=== PATIENT | female | born 1990 ===

== ENCOUNTER 2018-11-16 16:51 | Emergency (ER) | payer BC, OTHER ==
[2018-11-16] MEDS ORDERED: D50W 25 GM/50 ML SYRINGE IV ONE (17:38)
[2018-11-16 17:42] LABS: Absolute Lymphocytes (CBC) 3.5 K/uL (0.7-4.9); Absolute Monocytes 0.6 K/uL (0.1-1.3); Absolute Neutrophil 5.3 K/uL (1.8-8.0); Basophils % 0.5 % (0-1.3); Eosinophils % 1.3 % (0-4.4); Hematocrit 39.7 % (36.0-45.0); Lymphocytes % 36.6 % (15.3-44.8); MPV 8.5 fL (7.6-11.3); Monocytes % 6.5 % (3.3-12.3)
[2018-11-16 17:46] LABS: Protime INR 1.11
--- NOTE | 2018-11-16 17:55 | RAD REPORT ---
EXAM DESCRIPTION: Feliciano Single View11/16/2018 5:48 pm CLINICAL HISTORY: Chest pain COMPARISON: none FINDINGS: The lungs appear clear of acute infiltrate. The heart is normal size IMPRESSION: No acute abnormalities displayed
[2018-11-16 18:08] LABS: ALT/SGPT 16 U/L (12-78); AST/SGOT 7 U/L (15-37); Albumin 3.8 g/dL (3.4-5.0); Alkaline Phosphatase 70 U/L (45-117); BUN Blood Urea Nitrogen 13 mg/dL (7-18); Bicarbonate 23 mmol/L (21-32); Bilirubin Direct 0.1 mg/dL (0-0.2); Bilirubin Total 0.3 mg/dL (0.2-1.0); Glucose Level 69 mg/dL (74-106); Magnesium 2.2 mg/dL (1.8-2.4); NT PRO-BNP 38 pg/mL (<125); Potassium 3.5 mmol/L (3.5-5.1); Protein, Total 7.3 g/dL (6.4-8.2); Sodium Level 141 mmol/L (136-145); Troponin (Emerg Dept Use Only) < 0.02 ng/mL (0.0-0.045)
[2018-11-16] MEDS ORDERED: NA CHLORIDE 0.9% 1,000 ML ONE (18:12)
[2018-11-16] MEDS ORDERED: KETOROLAC 30 MG/ML INJ ONE (18:32)
[2018-11-16 19:53] LABS: Urine Bacteria 20-50 /HPF (<20); Urine Culture Reflex Order NOT NEEDED; Urine RBC <5 /HPF (NONE SEEN)
[2018-11-16 19:56] LABS: Urine Blood NEGATIVE (NEG); Urine Glucose 2+ (NEG); Urine Protein 1+ (NEG); Urine pH 6.5 (5.0-7.0)
--- NOTE | 2018-11-16 20:00 | RAD REPORT ---
EXAM DESCRIPTION: RAD - Lumbar Spine 3 Views - 11/16/2018 7:28 pm CLINICAL HISTORY: Pain, syncope COMPARISON: None. FINDINGS: A three-view lumbar spine examination was performed. Lumbar bodies are normal in height an d normal in AP alignment. There is a minimal left convex curvature. No fracture or acute bony process seen. No disc space narrowing. No pars defects identified. IMPRESSION: Minimal left convex curvature that is potentially positional or from muscle spasm. No fracture seen. No acute bone or disc finding.
--- NOTE | 2018-11-16 20:00 | RAD REPORT ---
EXAM DESCRIPTION: CT - Head Brain Wo Cont - 11/16/2018 7:36 pm CLINICAL HISTORY: Syncope COMPARISON: None. TECHNIQUE: Axial 5 mm thick images of the head were obtained without IV contrast. All CT scans are performed using dose optimization technique as appropriate and may include automated exposure control or mA/KV adjustment according to patient size. FINDINGS: No intracranial hemorrhage, mass, edema or shift of mid-line structures. No acute infarcti on changes seen. No abnormal extra-axial fluid collections. Ventricles are normal. Mastoid air cells and visualized portions of the paranasal sinuses are clear. No acute bony findings. IMPRESSION: Negative non-contrast CT head examination.
[2018-11-16] MEDS ORDERED: FENTANYL CITR 100 MCG/2 ML ONE (20:43)
--- NOTE | 2018-11-16 20:45 | EDPHYS ---
Physician Documentation [facility] Department Name: Bel Gould Age: 28 yrs Sex: Female : 1990 Arrival Date: 11/16/2018 Time: 16:57 Bed 18 Private MD: ED Physician Kavin Roberts HPI: 11/16 17:36 This 28 yrs old Unknown Female presents to ER via EMS with complaints of Syncope. jr8 17:36 The patient has experienced syncope, became unresponsive, lost consciousness. Onset: jr8 The symptoms/episode began/occurred acutely, today. Duration: This was a single episode, that lasted 1 minute(s). Context: the episode(s) was witnessed, by family, occurred at home, occurred while the patient was sitting, Just prior to the episode the patient experienced no apparent symptoms. Associated injury: The patient did not suffer any apparent associated injury. Associated signs and symptoms: The patient has no apparent associated signs or symptoms. Current symptoms: Currently, the patient is not experiencing any symptoms, the patient feels back to baseline, no decreased level of consciousness, no confusion, no dysphasia, no headache, no paralysis, no visual changes. The patient has not experienced similar symptoms in the past. The patient has not recently seen a physician. Stated that they were getting ready for a [employer] party. Mother had found daughter sitting in chair leaning sideways drooling and shaking. 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 - Social history:: Smoking status: unknown. - Ebola Screening: : Patient negative for fever greater than or equal to 101.5 degrees Fahrenheit, and additional compatible Ebola Virus Disease symptoms Patient denies exposure to infectious person Patient denies travel to an Ebola-affected area in the 21 days before illness onset No symptoms or risks identified at this time. ROS: 17:36 Eyes: Negative for injury, pain, redness, and discharge, ENT: Negative for injury, jr8 pain, and discharge, Neck: Negative for injury, pain, and swelling, Cardiovascular: Negative for chest pain, palpitations, and edema, Respiratory: Negative for shortness of breath, cough, wheezing, and pleuritic chest pain, Abdomen/GI: Negative for abdominal pain, nausea, vomiting, diarrhea, and constipation, Back: Negative for injury and pain, MS/Extremity: Negative for injury and deformity, Skin: Negative for injury, rash, and discoloration. 17:36 Neuro: Positive for loss of consciousness, syncope. Exam: 17:36 Eyes: Pupils equal round and reactive to light, extra-ocular motions intact. Lids and jr8 lashes normal. Conjunctiva and sclera are non-icteric and not injected. Cornea within normal limits. Periorbital areas with no swelling, redness, or edema. ENT: Nares patent. No nasal discharge, no septal abnormalities noted. Tympanic membranes are normal and external auditory canals are clear. Oropharynx with no redness, swelling, or masses, exudates, or evidence of obstruction, uvula midline. Mucous membranes moist. Neck: Trachea midline, no thyromegaly or masses palpated, and no cervical lymphadenopathy. Supple, full range of motion without nuchal rigidity, or vertebral point tenderness. No Meningismus. Cardiovascular: Regular rate and rhythm with a normal S1 and S2. No gallops, murmurs, or rubs. Normal PMI, no JVD. No pulse deficits. Respiratory: Lungs have equal breath sounds bilaterally, clear to auscultation and percussion. No rales, rhonchi or wheezes noted. No increased work of breathing, no retractions or nasal flaring. Abdomen/GI: Soft, non-tender, with normal bowel sounds. No distension or tympany. No guarding or rebound. No evidence of tenderness throughout. Back: No spinal tenderness. No costovertebral tenderness. Full range of motion. Skin: Warm, dry with normal turgor. Normal color with no rashes, no lesions, and no evidence of cellulitis. MS/ Extremity: Pulses equal, no cyanosis. Neurovascular intact. Full, normal range of motion. Neuro: Awake and alert, GCS 15, oriented to person, place, time, and situation. Cranial nerves II-XII grossly intact. Motor strength 5/5 in all extremities. Sensory grossly intact. Cerebellar exam normal. Normal gait. Vital Signs: 17:13 Weight 58.97 kg; bp 17:46 BP 108 / 75; Pulse 81; Resp 20; Temp 98.4; Pulse Ox 99% on R/A; aj 17:50 BP 106 / 73 Supine; Pulse 76; Resp 17; Pulse Ox 99% on R/A; aj1 17:52 BP 103 / 72 Sitting; Pulse 88; aj1 17:56 BP 86 / 63 Standing; Pulse 107; aj1 18:15 BP 98 / 75; Pulse 76; Resp 16; Pulse Ox 97% on R/A; aj1 19:10 BP 105 / 83; Pulse 70; Resp 16; Temp 98.2; Pulse Ox 99% ; Pain 6/10; rr5 20:25 BP 108 / 78 Supine; Pulse 77; Resp 17; Pulse Ox 98% ; rr5 20:27 BP 109 / 83 Sitting; Pulse 81; Resp 16; Pulse Ox 100% ; rr5 20:28 BP 115 / 80 Standing; Pulse 74; Resp 17; Pulse Ox 99% ; rr5 21:00 BP 116 / 76; Pulse 70; Resp 17; Pulse Ox 99% ; rr5 MDM: 17:07 Patient medically screened. [facility] 20:42 Data reviewed: vital signs, nurses notes, lab test result(s), EKG, radiologic studies, [facility] CT scan, plain films. Data interpreted: Pulse oximetry: on room air is 99 %. Interpretation: normal. Counseling: I had a detailed discussion with the patient and/or guardian regarding: the historical points, exam findings, and any diagnostic results supporting the discharge/admit diagnosis, lab results, radiology results, the need for outpatient follow up, a family practitioner, to return to the emergency department if symptoms worsen or persist or if there are any questions or concerns that arise at home. Response to treatment: the patient's symptoms have markedly improved after treatment, patient is well hydrated. ED course: Patient had been dieting. Had told her that glucose was low and was orthostatic positive. All other images and labs normal. What happened today was more then likely secondary to dieting. Will need to increase food intake and fluids for next few days. Needs to f/u after holidays. If it happens again needs to come back for further evaluation. Patient good with this and will f/u. No longer orthostatic. . 11/16 17:03 Order name: Urine Culture snw 11/16 17:03 Order name: Urine Microscopic Only; Complete Time: 19:55 snw 11/16 17:27 Order name: Basic Metabolic Panel; Complete Time: 18:11 [facility] 11/16 17:27 Order name: CBC with Diff; Complete Time: 17:49 [facility] 11/16 17:27 Order name: LFT's; Complete Time: 18:11 [facility] 11/16 17:27 Order name: Magnesium; Complete Time: 18:11 [facility] 11/16 17:27 Order name: NT PRO-BNP; Complete Time: 18:11 [facility] 11/16 17:27 Order name: PT-INR; Complete Time: 17:49 [facility] 11/16 17:27 Order name: Troponin (emerg Dept Use Only); Complete Time: 18:11 [facility] 11/16 17:27 Order name: XRAY Chest (1 view); Complete Time: 18:01 [facility] 11/16 19:36 Order name: Urine Dipstick--Ancillary (enter results) 11/16 19:36 Order name: Urine --Ancillary (enter results) eb 11/16 19:37 Order name: Urine Dipstick-Ancillary; Complete Time: 19:58 EDMS 11/16 19:37 Order name: Urine --Ancillary; Complete Time: 19:58 EDMS 11/16 17:03 Order name: Urine Test (obtain specimen); Complete Time: 20:06 snw 11/16 17:03 Order name: Urine Dipstick-Ancillary (obtain specimen); Complete Time: 20:06 snw 11/16 17:03 Order name: EKG; Complete Time: 17:03 snw 11/16 17:03 Order name: EKG - Nurse/Tech; Complete Time: 17:45 snw 11/16 17:03 Order name: Orthostatics; Complete Time: 18:10 snw 11/16 17:27 Order name: Cardiac monitoring; Complete Time: 17:37 [facility] 11/16 17:27 Order name: IV Saline Lock; Complete Time: 17:44 [facility] 11/16 17:27 Order name: Labs collected and sent; Complete Time: 17:44 [facility] 11/16 17:27 Order name: CT Head Brain wo Cont; Complete Time: 20:04 [facility] 11/16 18:55 Order name: XRAY Lumbar Spine (3 Views); Complete Time: 20:04 [facility] 12/22 17:27 Order name: O2 Per Protocol; Complete Time: 17:45 jr8 11/16 17:27 Order name: O2 Sat Monitoring; Complete Time: 17:45 8 11/16 17:27 Order name: Orthostatics; Complete Time: 18:10 jr8 Administered Medications: 17:35 Drug: D50W 25 ml Route: IVP; Site: right antecubital; aj 21:32 Follow up: Response: No adverse reaction rr5 18:09 Drug: NS 0.9% 1000 ml Route: IV; Rate: 1000 ml; Site: right forearm; aj1 19:20 Follow up: Response: No adverse reaction; IV Status: Completed infusion; IV Intake: rr5 1000ml 18:25 Drug: TORadol 30 mg Route: IVP; Site: right forearm; aj1 21:32 Follow up: Response: No adverse reaction rr5 20:40 Drug: fentaNYL (PF) 25 mcg Route: IVP; Site: right forearm; rr5 21:31 Follow up: Response: No adverse reaction; Marked relief of symptoms rr5 20:43 CANCELLED (Duplicate Order): Soma 350 mg PO once rr5 21:07 Drug: Soma 350 mg Route: PO; rr5 21:31 Follow up: Response: No adverse reaction rr5 Point of Care Testing: Blood Glucose: 17:13 Blood Glucose: 55 mg/dL; bp 18:53 Blood Glucose: 89 mg/dL; aj1 20:28 Blood Glucose: 97 mg/dL; rr5 Ranges: Critical Glucose Levels:Adult <50 mg/dl or >400 mg/dl <40 mg/dl or >180 mg/dl Disposition: 11/16/18 20:45 Discharged to Home. Impression: Hypoglycemia, unspecified, Orthostatic hypotension, Muscle spasm of back. - Condition is Stable. - Discharge Instructions: Back Pain, Adult, Hypoglycemia, Muscle Cramps and Spasms, Back Exercises, [id number], Heat Therapy. - Prescriptions for Ibuprofen 800 mg Oral Tablet - take 1 tablet by ORAL route every 8 hours As needed take with food; 30 tablet. Robaxin 500 mg Oral Tablet - take 2 tablet by ORAL route every 6 hours As needed; 40 tablet. - Medication Reconciliation Form, Thank You Letter, Antibiotic Education, Prescription Opioid Use form. - Follow up: Private Physician; When: 2 - 3 days; Reason: Recheck today's complaints, Continuance of care, Re-evaluation by your physician. - Problem is new. - Symptoms have improved. Addendum: 11/28/2018 15:16 Co-signature as Attending Physician, Kavin Roberts MD Available for consultation at p s1 all times. . Signatures: Dispatcher [employer] EDMS Lisbeth Hernandez, RN RN aj1 Janelle Oro RN RN aj Evelina Samson, MARKETING SERVICES COORDINATOR-C MARKETING SERVICES COORDINATOR-Csnw Rah Glaser PA PA jr8 Serge Carreon RN RN bp Kavin Roberts MD MD ps1 Daniele Sanchez RN RN rr5 Corrections: (The following items were deleted from the chart) 11/16 20:43 20:42 Soma 350 mg PO once ordered. rr5 rr5 21:38 20:45 11/16/2018 20:45 Discharged to Home. Impression: Hypoglycemia, unspecified; rr5 Orthostatic hypotension; Muscle spasm of back. Condition is Stable. Forms are Medication Reconciliation Form, Thank You Letter, Antibiotic Education, Prescription Opioid Use. Follow up: Private Physician; When: 2 - 3 days; Reason: Recheck today's complaints, Continuance of care, Re-evaluation by your physician. Problem is new. Symptoms have improved. jr8
--- NOTE | 2018-11-16 20:45 | ER ---
Nurse's Notes [facility] Name: Bel Gould Age: 28 yrs Sex: Female : 1990 Arrival Date: 11/16/2018 Time: 16:57 Bed 18 Private MD: Diagnosis: Hypoglycemia, unspecified;Orthostatic hypotension;Muscle spasm of back Presentation: 11/16 16:59 Presenting complaint: EMS states: SYNCOPAL EPISODE AT HOME. Transition of care: patient bp was not received from another setting of care. Onset of symptoms is unknown. Risk Assessment: Do you want to hurt yourself or someone else? Patient reports no desire to harm self or others. Initial Sepsis Screen: Does the patient meet any 2 criteria? No. Patient's initial sepsis screen is negative. Does the patient have a suspected source of infection? No. Patient's initial sepsis screen is negative. Care prior to arrival: Glucose check: 68. 16:59 Method Of Arrival: EMS: [facility] bp 16:59 Acuity: SANJUANITA 3 bp Triage Assessment: 17:01 General: Appears in no apparent distress. comfortable, Behavior is cooperative, bp appropriate for age, anxious. Pain: Denies pain. EENT: No deficits noted. Neuro: Level of Consciousness is awake, alert, obeys commands, Oriented to person, place, time, situation, Appropriate for age Reports a syncopal episode. Cardiovascular: No deficits noted. Respiratory: Airway is patent Respiratory effort is even, unlabored, Respiratory pattern is regular, symmetrical. GI: No signs and/or symptoms were reported involving the gastrointestinal system. : No signs and/or symptoms were reported regarding the genitourinary system. Derm: No deficits noted. Musculoskeletal: Circulation, motion, and sensation intact. Range of motion: intact in all extremities. 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 - Social history:: Smoking status: unknown. - Ebola Screening: : Patient negative for fever greater than or equal to 101.5 degrees Fahrenheit, and additional compatible Ebola Virus Disease symptoms Patient denies exposure to infectious person Patient denies travel to an Ebola-affected area in the 21 days before illness onset No symptoms or risks identified at this time. Screenin:16 Abuse screen: Denies threats or abuse. Denies injuries from another. Nutritional bp screening: No deficits noted. Tuberculosis screening: No symptoms or risk factors identified. Fall Risk None identified. Assessment: 17:15 General: Appears in no apparent distress. comfortable, Behavior is cooperative, bp appropriate for age, anxious. Pain: Denies pain. Neuro: Level of Consciousness is awake, alert, obeys commands, Oriented to person, place, time, situation, Appropriate for age. Cardiovascular: Rhythm is sinus rhythm. Respiratory: Airway is patent Respiratory effort is even, unlabored, Respiratory pattern is regular, symmetrical. GI: No signs and/or symptoms were reported involving the gastrointestinal system. : No signs and/or symptoms were reported regarding the genitourinary system. EENT: No deficits noted. Derm: No deficits noted. Musculoskeletal: Circulation, motion, and sensation intact. Range of motion: intact in all extremities. 17:46 General: Appears in no apparent distress. comfortable, Behavior is calm, cooperative, aj appropriate for age. Pain: Denies pain. Neuro: Level of Consciousness is awake, alert, obeys commands, Oriented to person, place, time, situation, Appropriate for age. Neuro: Reports a syncopal episode. Cardiovascular: Denies chest pain. Respiratory: Airway is patent Respiratory effort is even, unlabored, Respiratory pattern is regular, symmetrical. Derm: Skin is intact, is healthy with good turgor, Skin is pink, warm \T\ dry. normal. 18:09 Reassessment: Patient appears in no apparent distress at this time. No changes from aj1 previously documented assessment. Patient and/or family updated on plan of care and expected duration. Pain level reassessed. Patient is alert, oriented x 3, equal unlabored respirations, skin warm/dry/pink. 18:56 Reassessment: Patient states that she is still having a lot of back pain that radiates aj1 down her leg. Notified ROSIO Hilliard. 19:10 General: Appears in no apparent distress. uncomfortable, Behavior is calm, cooperative, rr5 appropriate for age. Pain: Complains of pain in back Pain radiates to right leg Pain currently is 6 out of 10 on a pain scale. Quality of pain is described as aching, Pain began suddenly, Is intermittent. Neuro: Level of Consciousness is awake, alert, obeys commands, Oriented to person, place, time, situation, Appropriate for age Reports a syncopal episode. Cardiovascular: Capillary refill < 3 seconds Patient's skin is warm and dry. Respiratory: Airway is patent Respiratory effort is even, unlabored, Respiratory pattern is regular, symmetrical. GI: Abdomen is flat. : No signs and/or symptoms were reported regarding the genitourinary system. EENT: No signs and/or symptoms were reported regarding the EENT system. Derm: No signs and/or symptoms reported regarding the dermatologic system. Musculoskeletal: No signs and/or symptoms reported regarding the musculoskeletal system. Circulation, motion, and sensation intact. Range of motion: intact in all extremities. 20:30 Reassessment: Patient appears in no apparent distress at this time. awaiting for rr5 report. Patient states feeling better. Patient states symptoms have improved. 21:20 Reassessment: Patient appears in no apparent distress at this time. Patient and/or rr5 family updated on plan of care and expected duration. Pain level reassessed. discharge instruction given and explained without complaints made. Patient states feeling better. Patient states symptoms have improved. Vital Signs: 17:13 Weight 58.97 kg; bp 17:46 BP 108 / 75; Pulse 81; Resp 20; Temp 98.4; Pulse Ox 99% on R/A; aj 17:50 BP 106 / 73 Supine; Pulse 76; Resp 17; Pulse Ox 99% on R/A; aj1 17:52 BP 103 / 72 Sitting; Pulse 88; aj1 17:56 BP 86 / 63 Standing; Pulse 107; aj1 18:15 BP 98 / 75; Pulse 76; Resp 16; Pulse Ox 97% on R/A; aj1 19:10 BP 105 / 83; Pulse 70; Resp 16; Temp 98.2; Pulse Ox 99% ; Pain 6/10; rr5 20:25 BP 108 / 78 Supine; Pulse 77; Resp 17; Pulse Ox 98% ; rr5 20:27 BP 109 / 83 Sitting; Pulse 81; Resp 16; Pulse Ox 100% ; rr5 20:28 BP 115 / 80 Standing; Pulse 74; Resp 17; Pulse Ox 99% ; rr5 21:00 BP 116 / 76; Pulse 70; Resp 17; Pulse Ox 99% ; rr5 ED Course: 16:57 Patient arrived in ED. bp 17:00 Triage completed. bp 17:03 Patient has correct armband on for positive identification. Placed in gown. Bed in low mh5 position. Call light in reach. Side rails up X2. Adult w/ patient. Warm blanket given. monitoring coordinator on. Pulse ox on. NIBP on. 17:07 Rah Glaser PA is PHCP. jr8 17:07 Kavin Roberts MD is Attending Physician. jr8 17:15 Inserted saline lock: 20 gauge in right forearm, using aseptic technique. Blood bp collected. 17:27 Janelle Oro, JALEN is Primary Nurse. aj 17:36 EKG done, by ED staff, reviewed by Rah AVELAR. mh5 17:48 XRAY Chest (1 view) In Process Unspecified. EDMS 18:02 Radiology exam delayed due to test not completed at this time. bq 19:10 Arm band placed on. rr5 19:26 XRAY Lumbar Spine (3 Views) In Process Unspecified. EDMS 19:35 CT Head Brain wo Cont In Process Unspecified. EDMS 19:35 CT completed. Patient tolerated procedure well. Patient moved back from CT. bq 21:20 No provider procedures requiring assistance completed. IV discontinued, intact, rr5 bleeding controlled, No redness/swelling at site. Pressure dressing applied. Administered Medications: 17:35 Drug: D50W 25 ml Route: IVP; Site: right antecubital; aj 21:32 Follow up: Response: No adverse reaction rr5 18:09 Drug: NS 0.9% 1000 ml Route: IV; Rate: 1000 ml; Site: right forearm; aj1 19:20 Follow up: Response: No adverse reaction; IV Status: Completed infusion; IV Intake: rr5 1000ml 18:25 Drug: TORadol 30 mg Route: IVP; Site: right forearm; aj1 21:32 Follow up: Response: No adverse reaction rr5 20:40 Drug: fentaNYL (PF) 25 mcg Route: IVP; Site: right forearm; rr5 21:31 Follow up: Response: No adverse reaction; Marked relief of symptoms rr5 20:43 CANCELLED (Duplicate Order): Soma 350 mg PO once rr5 21:07 Drug: Soma 350 mg Route: PO; rr5 21:31 Follow up: Response: No adverse reaction rr5 Point of Care Testing: Blood Glucose: 17:13 Blood Glucose: 55 mg/dL; bp 18:53 Blood Glucose: 89 mg/dL; aj1 20:28 Blood Glucose: 97 mg/dL; rr5 Ranges: Intake: 19:20 IV: 1000ml; Total: 1000ml. rr5 Outcome: 20:45 Discharge ordered by . bora 21:20 Discharged to home via wheelchair, with family. rr5 21:20 Condition: stable 21:20 Discharge instructions given to patient, family, Instructed on discharge instructions, follow up and referral plans. medication usage, Demonstrated understanding of instructions, follow-up care, medications, Prescriptions given X 2. 21:38 Patient left the ED. rr5 Signatures: Dispatcher [employer] EDLisbeth Kaur RN RN aj1 Janelle Oro, RN Princess Castellanos Josh, PA PA jr8 Misty Baldwin5 Serge Carreon RN RN bp Roque, Raymond, JALEN RN rr5
[2018-11-16] MEDS ORDERED: CARISOPRODOL 350 MG TAB PO ONE (21:10)
--- NOTE | 2018-11-17 17:28 | EKG ---
Test Date: 2018-11-16 Test Time: 17:29:07 Insurance Sales Producer: TAMELA MEASUREMENT RESULTS: Intervals: Rate: 79 HI: 136 QRSD: 86 QT: 378 QTc: 433 [place]: P: 70 HI: 136 QRS: 70 T: 65 INTERPRETIVE STATEMENTS: Normal sinus rhythm with sinus arrhythmia Normal ECG No previous ECG available for comparison Electronically Signed On 11-17-18 17:18:12 [employer] by Gideon Silveira
== END 2018-11-16 21:38 | disposition home or self-care (01) ==
LOC: ER 16:51
DX: E16.2 Hypoglycemia, unspecified (principal); I95.1 Orthostatic hypotension; M62.830 Muscle spasm of back; F41.9 Anxiety disorder, unspecified; Z79.899 Other long term (current) drug therapy
CPT/HCPCS: 36415; 70450; 71045; 72100; 80048; 80076; 81003; 81015; 81025; 82962; 83735; 83880; 84484; 85025; 85610; 87086; 87088; 93005; 99285; J3010; J7030